=== PATIENT | female | born 1990 | race African-American/Black ===

== ENCOUNTER 2016-08-24 20:26 | Emergency (ER) | payer OTHER ==
[~2016-08-24] VITALS: Ht 167.6 cm; Wt 93.0 kg
[~2016-08-24 20:26] MED LIST: AMOXICILLIN500 M3 PO; BENADRYL/LIDO/MAALOX PO; BENTYL20 M1 PO; IBUPROFEN600 M1 PO; ORTHO TRI-CYCL1 EAC1 PO; PREDNISONE 20MG20 MG PO; PREDNISONE20 M1 PO; PROMETHAZINE HC25 M3 PO; TRI-SPRINTEC T1 EACH PO; ZOFRAN4 M1 PO; ZOFRAN4 M2 PO
--- NOTE | 2016-08-24 20:44 | ED DYSPNEA/ASTHMA COMPLAINT ---
History of Present Illness General Chief Complaint: Dyspnea (COPD, CHF, Other) Stated Complaint: DIFF BREATHING Source: patient, family Exam Limitations: no limitations Vital Signs & Intake/Output Vital Signs & Intake/Output Vital Signs Date Time Temp Pulse Resp B/P B/P Pulse O2 O2 Flow FiO2 Mean Ox Delivery Rate 08/24 2132 98.6 100 18 128/86 98 Room Air 08/24 2040 98 Room Air 08/24 2029 98.6 118 22 136/99 98 Room Air Allergies Coded Allergies: tramadol (SWELLING IN HANDS 11/28/15) Uncoded Allergies: CARAMEL (ANAPHYLAXIS 07/04/15) Reconcile Medications Lorazepam (Ativan) 0.5 MG TABLET 1 TAB PO BIDP PRN GRIEF EIGHT... [id number] Triage Note: PT TO TRIAGE WITH HER FRIENDS FOR SOB, PT HAS HISTORY OF ANXIETY AND SHE JUST FOUND OUT THAT HER DAD AND STARTED TO HAVE PANICK ATTACK, O2 SAT 98 % ON RA Triage Nurses Notes Reviewed? yes Onset: Gradual Duration: minute(s): Timing: recent history Severity: moderate Activities at Onset: Per mother, "She just heard that her father was killed in [place]." Prior Episodes/Possible Cause: prior episodes of panic attack. : No Patient currently breastfeeds: No HPI: 26-year-old woman, history of prior episodes of panic attack, presents tearful and hyperventilating. Per her mother, "she just heard that her father was killed in [place]. She started crying and I got nervous because she would not stop crying." She denies alcohol or drugs. She denies suicidality or homicidality. Past History Travel History Traveled to [place] past 21 day No Medical History Any Pertinent Medical History? see below for history Neurological: NONE EENT: NONE Cardiovascular: NONE Respiratory: NONE Gastrointestinal: NONE Hepatic: NONE Renal: NONE Musculoskeletal: NONE Psychiatric: NONE Endocrine: NONE Blood Disorders: NONE Cancer(s): NONE [employer]/Reproductive: NONE Surgical History Surgical History: non-contributory, N Psychosocial History What is your primary language Spanish Tobacco Use: Never used ETOH Use: denies use Illicit Drug Use: denies illicit drug use Family History Hx Contributory? No Review of Systems Review of Systems Constitutional: Reports: no symptoms. EENTM: Reports: no symptoms. Respiratory: Reports: no symptoms. Cardiovascular: Reports: no symptoms. GI: Reports: no symptoms. Genitourinary: Reports: no symptoms. Musculoskeletal: Reports: no symptoms. Skin: Reports: no symptoms. Neurological/Psychological: Reports: no symptoms. Hematologic/Endocrine: Reports: no symptoms. Immunologic/Allergic: Reports: no symptoms. All Other Systems: Reviewed and Negative Physical Exam Physical Exam General Appearance: well developed/nourished, mild distress, moderate distress Head: atraumatic, normal appearance Eyes: Bilateral: normal appearance. Ears, Nose, Throat: normal pharynx, normal ENT inspection Neck: normal inspection, supple, full range of motion Respiratory: normal breath sounds, chest non-tender, no respiratory distress Gastrointestinal: normal bowel sounds, soft, non-tender Extremities: normal inspection Neurologic/Psych: no motor/sensory deficits, awake, alert, oriented x 3, tearful , anxious Core Measures ACS in differential dx? No Severe Sepsis Present: No Septic Shock Present: No Progress Differential Diagnosis: acute grief reaction versus PTSD versus panic attack versus other Plan of Care: Patient given Ativan 1.0 mg. After approximately 45 minutes, the patient felt better. She felt comfortable going home in the company of her family. I encouraged her to follow up with [facility] and gave her a prescription for a few pills of Ativan 0.5 mg to help her if her grief exacerbates. Emotional support provided Initial ED EKG: none Departure Departure Disposition: HOME OR SELF CARE Condition: Stable Clinical Impression Primary Impression: Grief Referrals: UNKNOWN (PCP/Family) Departure Forms: Customer Survey General Discharge Information Prescriptions: Current Visit Scripts Lorazepam (Ativan) 1 TAB PO BIDP PRN GRIEF #8 TAB EIGHT... [id number] Critical Care Note Critical Care Note Critical Care Time: non-applicable
[2016-08-24] MEDS ORDERED: ATIVAN0.5 M1 PO (21:22)
[2016-08-24 21:33] VITALS: BP 128/86
== END 2016-08-24 21:35 ==
LOC: ERH 20:26
DX: F43.21 Adjustment disorder with depressed mood (principal)